=== PATIENT | male | born 1990 | race Caucasian/White ===

== ENCOUNTER 2024-03-06 00:32 | Emergency (ER) | payer SELFPAY ==
[~2024-03-06] VITALS: Ht 167.6 cm; Wt 81.6 kg
[2024-03-06 00:52] VITALS: BP 141/88; PULSE 86; RESP 18; TEMP 208.6; TEMP 98.1; O2SAT 99
[2024-03-06 01:41] LABS: FLU A ANTIGEN negative (NEGATIVE); FLU B ANTIGEN NEGATIVE (NEGATIVE)
[2024-03-06] MEDS: ACETAMINOPHEN 325 MG TAB PO ONE (02:08)
[2024-03-06] MEDS ORDERED: BACTO TP (02:12)
[2024-03-06] MEDS ORDERED: BENZ200C4 PO (02:12)
[2024-03-06] MEDS ORDERED: IBUP-2213 PO (02:12)
== END 2024-03-06 02:20 | disposition home or self-care (01) ==
LOC: MED 00:32
DX: J06.9 Acute upper respiratory infection, unspecified (principal); B97.89 Other viral agents as the cause of diseases classified elsewhere; M25.562 Pain in left knee; Z20.822 Contact with and (suspected) exposure to COVID-19; Z79.899 Other long term (current) drug therapy
CPT/HCPCS: 73562; 99284